=== PATIENT | female | born 1990 | race Caucasian/White ===

== ENCOUNTER 2018-02-19 19:57 | Emergency (ER) | payer OTHER ==
[~2018-02-19] VITALS: Ht 167.6 cm; Wt 119.7 kg
[2018-02-19] MEDS ORDERED: ACID REDUCER20 MG (20:09)
[2018-02-19] MEDS ORDERED: PANTOPRAZOLE SO40 MG (20:10)
[2018-02-19] MEDS ORDERED: DEXAMETHASONE4 MG (20:10)
[2018-02-19] MEDS ORDERED: SUCRALFATE1 GM (20:10)
[2018-02-19] MEDS ORDERED: DICY20TA (20:10)
[2018-02-19] MEDS ORDERED: AMOX-CLAV 875-1 EACH (20:11)
== END 2018-02-19 21:55 | disposition home or self-care (01) ==
LOC: ER 19:57
DX: R20.0 Anesthesia of skin (principal); F06.4 Anxiety disorder due to known physiological condition

== ENCOUNTER → 2018-07-12 06:00 | Outpatient (CLI) | payer OTHER ==
[~2018-07-12 06:00] MED LIST: ACID REDUCER20 MG; AMOX-CLAV 875-1 EACH; DEXAMETHASONE4 MG; DICY20TA; PANTOPRAZOLE SO40 MG; SUCRALFATE1 GM
== END | disposition home or self-care (01) ==
LOC: ADM 07-11 09:30 → EKG 06:00 → CIR.AMB 07-17 06:06 → EDSTATUS 07-17 09:30 → CIR.AMB 07-17 09:30
DX: C73 Malignant neoplasm of thyroid gland (principal)

== ENCOUNTER 2018-08-19 11:09 | Outpatient (CLI) | payer OTHER | END 2018-08-19 11:16 | disposition home or self-care (01) | LOC: LAB 11:09 | DX: Z01.812 Encounter for preprocedural laboratory examination (principal) ==

== ENCOUNTER 2018-09-04 09:00 | Day surgery (SDC) | payer OTHER ==
[~2018-09-04 09:00] MED LIST changes: +MUCINEX600 MG PO; +SINGULAIR10 MG PO; +SYMBICORT 16010.2 GM IH; +TESSALON PERLE100 M1 PO; +TUSSIONEX PENN115 ML PO; +ZITHROMAX500 MG PO
[2018-09-04] MEDS ORDERED: PERCOCET 5-3251 EACH PO (14:03)
== END 2018-09-04 17:28 | disposition home or self-care (01) ==
LOC: CIR.AMB 09:00
DX: C73 Malignant neoplasm of thyroid gland (principal)